=== PATIENT | female | born 1960 | race Caucasian/White ===

== ENCOUNTER → 2016-07-13 | Outpatient (CLI) | payer OTHER ==
--- NOTE | 2016-07-13 10:43 | MA ---
Screening Digital Mammogram With Tomosynthesis and iCAD Indication: Routine screening. Mother diagnosed with breast cancer at the age of 71. Technique: Standard digital CC projections were obtained. Digital breast tomosynthesis was performed in the MLO projection with reconstruction at 1.0 mm slice thickness. Composite MLO views were recons tructed. This examination was processed by the iCAD computer-aided detection system. Comparison: June 2015, November 2013 and November 2011 Breast density: Type C. Findings: CAD was reviewed. No suspicious microcalcifications, mass, or architectural distortion. Impression: Negative mammogram BI-RADS: 1 - Negative Recommendation: Routine screening is recommended in one year, as long as physical examination is rodrigo ign in this patient with moderately dense breast parenchyma. [facility] will send [facility] result letter to the patient. Negative mammography should not preclude additional workup of a clinically suspicious finding. The patient's information is entered into a reminder system with a target due date for her next mammo gram.
== END ==
LOC: FIMAGING 08:44
DX: Z12.31 Encounter for screening mammogram for malignant neoplasm of breast (principal); Z80.3 Family history of malignant neoplasm of breast
CPT/HCPCS: G0202

== ENCOUNTER → 2017-07-14 | Outpatient (CLI) | payer OTHER | LOC: FIMAGING 08:32 | PROVIDERS: ATTEND Physician Assistant | DX: Z12.31 Encounter for screening mammogram for malignant neoplasm of breast (principal); Z80.3 Family history of malignant neoplasm of breast ==

== ENCOUNTER → 2018-07-19 | Outpatient (CLI) | payer OTHER | LOC: FIMAGING 08:55 | PROVIDERS: ATTEND Physician Assistant | DX: Z12.31 Encounter for screening mammogram for malignant neoplasm of breast (principal); Z80.3 Family history of malignant neoplasm of breast ==